=== PATIENT | female | born 1950 | race Caucasian/White ===

== ENCOUNTER → 2019-02-05 | Outpatient (REF) | payer MEDICARE, OTHER ==
[~2019-02-05] MED LIST: AGGRENOX 200/251 CAP OR; ALLEGRA180 MG OR; AMBIEN10 MG PO; ASA LO-DOSE81 MG OR; BACTRIM DS1 TAB OR; BENAZEPRIL10 MG PO; CALAN120 MG PO; CALCIUM600 M1 PO; CARAFATE OR; CARBAMAZEPINE100 MG PO; CRESTOR20 MG PO; DICLOFENAC SODI75 MG PO; FISH OIL1200 M1 OR; FLUTICASONE50 MCG; GLUCOSAMINE1000 M1 OR; KLOR-CON 1010 MEQ PO; LASIX20 MG PO; LOTENSIN OR; LOTENSIN10 MG OR; MISOPROSTOL100 MCG PO; MULTI VIT PO; NEXIUM40 M1 PO; PREMARIN0.3 MG OR; PREMARIN0.625 MG OR; SINGULAIR10 MG OR; STOOL SOFTENER100 MG PO; VITAMIN D1000 UNI1 PO; ZANTAC300 MG PO; ZOCOR20 MG OR; ZOCOR40 MG OR; ZYRTEC10 MG PO
== END | disposition home or self-care (01) ==
LOC: BD 13:20
PROVIDERS: ATTEND Internal Medicine
DX: N95.1 Menopausal and female climacteric states (principal)

== ENCOUNTER 2019-11-16 | Emergency (ER) | payer OTHER, MEDICARE ==
[2019-11-16 15:56] LABS: HEMATOCRIT 40.4 % (37.0-47.0); HEMOGLOBIN 13.7 g/dl (12.0-16.0); IMMATURE GRANULOCYTES 0.2 % (0.0-5.0); MEAN CELL VOLUME 89.4 fL CALC (80.0-100.0); MEAN CORPUSCULAR HGB 30.3 pG CALC (26.0-32.0); MEAN CORPUSCULAR HGB CONC 33.9 g/L CALC (32.0-36.0); NEUT# 3.05 thou/uL (2.00-7.15); RED BLOOD COUNT 4.52 mill/uL (4.20-5.60); RED CELL DISTRI WIDTH 12.7 % (11.5-15.5)
[2019-11-16 16:08] LABS: ALBUMIN 4.3 g/dL (3.2-5.0); ALKALINE PHOSPHATASE 87 u/l (38-126); ANION GAP 11 (6-22 (CALC)); BILIRUBIN, TOTAL 0.3 mg/dL (0.0-1.4); BUN 16 mg/dL (8-23); BUN/CREATININE RATIO 36 (12-20 (CALC)); CARBON DIOXIDE 26 mmol/l (22-30); CHLORIDE 106 mmol/l (95-108); CREATININE 0.5 mg/dL (0.5-1.0); GFR > 60 ML/MIN (>=60 (CALC)); GFR FOR AFR.AMER. > 60 ML/MIN (>=60 (CALC)); LIPASE 54 u/l (23-300); POTASSIUM 3.6 mmol/l (3.5-5.1); SODIUM 139 mmol/l (137-146); TOTAL PROTEIN 7.3 g/dL (6.3-8.2)
[2019-11-16 16:17] LABS: SGOT/AST 107 u/l (9-36)
[2019-11-16] MEDS ORDERED: TRAMADOL HYDROC50 MG PO (17:31)
[2019-11-16] MEDS ORDERED: FLEXERIL PO (17:31)
== END 2019-11-16 17:40 | disposition home or self-care (01) | DRG 552 ==
DX: S13.9XXA Sprain of joints and ligaments of unspecified parts of neck, initial encounter (principal); S20.212A Contusion of left front wall of thorax, initial encounter; S29.012A Strain of muscle and tendon of back wall of thorax, initial encounter; V54.5XXA Driver of pick-up truck or van injured in collision with heavy transport vehicle or bus in traffic accident, initial encounter

== ENCOUNTER 2023-02-05 10:54 | Emergency (ER) | payer MEDICARE, OTHER ==
[~2023-02-05] VITALS: Ht 165.1 cm; Wt 74.8 kg
[~2023-02-05 10:54] MED LIST changes: +FLEXERIL PO; +TRAMADOL HYDROC50 MG PO
[2023-02-05 11:15] VITALS: BP 161/72
[2023-02-05 11:31] VITALS: BP 140/64
[2023-02-05 12:01] VITALS: BP 140/76
[2023-02-05] MEDS ORDERED: AMOXICILLIN500 M2 PO (13:48)
[2023-02-05] MEDS ORDERED: PERCOCET 10/31 COMBO PO (13:48)
[2023-02-05] MEDS ORDERED: DIFLUCAN100 M1 PO (13:48)
[2023-02-05 13:50] VITALS: BP 140/76
== END 2023-02-05 13:55 | disposition home or self-care (01) ==
LOC: ED 10:54
DX: K08.89 Other specified disorders of teeth and supporting structures (principal)

== ENCOUNTER 2025-01-07 17:36 | Emergency (ER) | payer MEDICARE, OTHER ==
[2025-01-07] VITALS (13 sets, daily range): BP systolic 121–198; BP diastolic 55–99
[~2025-01-07] VITALS: Ht 165.1 cm; Wt 74.8 kg
[~2025-01-07 17:36] MED LIST changes: +AMOXICILLIN500 M2 PO; +DIFLUCAN100 M1 PO; +PERCOCET 10/31 COMBO PO
[2025-01-07] MEDS ORDERED: ASPIRIN 81 MG/TAB PO ONE (18:40)
[2025-01-07] MEDS ORDERED: LABETALOL HCL 100 MG/20 ML VIAL IV ONE (18:45)
[2025-01-07 18:48] LABS: BASO% 0.5 % (0-3); EOS% 1.1 % (0-8); HEMATOCRIT 38.9 % (37.0-47.0); HEMOGLOBIN 13.3 g/dl (12.0-16.0); IMMATURE GRANULOCYTES 0.5 % (0.0-5.0); LYMPH% 25.3 % (15-41); MEAN CORPUSCULAR HGB 30.8 pG CALC (26.0-32.0); MEAN CORPUSCULAR HGB CONC 34.2 g/dL CAL (32.0-36.0); MONO% 11.2 % (2-13); NEUT# 2.25 thou/uL (2.00-7.15); NEUT% 61.4 % (42-76); RED BLOOD COUNT 4.32 mill/uL (4.20-5.60); RED CELL DISTRI WIDTH 12.2 % (11.5-15.5)
[2025-01-07 19:00] LABS: ALBUMIN 4.3 g/dL (3.2-5.0); ALKALINE PHOSPHATASE 91 u/l (38-126); ANION GAP 11 (6-22 (CALC)); BUN 13 mg/dL (8-23); BUN/CREATININE RATIO 22 (12-20 (CALC)); CARBON DIOXIDE 25 mmol/l (22-30); CHLORIDE 100 mmol/l (95-108); CREATININE 0.6 mg/dL (0.5-1.0); ESTIMATED GFR 94 ML/MIN (>=90 (CALC)); POTASSIUM 4.1 mmol/l (3.5-5.1); SGOT/AST 44 u/l (9-36); SODIUM 132 mmol/l (137-146); TOTAL PROTEIN 6.7 g/dL (6.3-8.2)
[2025-01-07] MEDS ORDERED: SODIUM CHLORIDE 0.9% 250 ML IV PRN (19:05)
[2025-01-07] MEDS ORDERED: NITROGLYCERIN IN D5W 250 ML IV ONE (19:05)
[2025-01-07 19:10] LABS: BILIRUBIN, TOTAL 0.6 mg/dL (0.02-1.3)
[2025-01-07] MEDS ORDERED: MORPHINE SULFATE 4 MG/ML VIAL IV ONE (19:15)
[2025-01-07] MEDS ORDERED: PROMETHAZINE HCL 25 MG/ML AMP IV ONE (19:15)
[2025-01-07] MEDS ORDERED: ALUM & MAG HYDROX-SIMETHICONE 30 ML PO ONE (20:20)
[2025-01-07] MEDS ORDERED: LIDOCAINE VISCOUS 2% 15 ML UDC PO ONE (20:20)
[2025-01-07] MEDS ORDERED: NEXIUM40 M1 PO (21:07)
== END 2025-01-07 21:30 | disposition home or self-care (01) ==
LOC: ED 17:36
PROVIDERS: Family Medicine
DX: R07.9 Chest pain, unspecified (principal); K21.9 Gastro-esophageal reflux disease without esophagitis; I10 Essential (primary) hypertension
CPT/HCPCS: J2550